=== PATIENT | male | born 1960 | race Caucasian/White ===

== ENCOUNTER 2021-06-22 06:40 | Day surgery (SDC) | payer OTHER ==
[~2021-06-22] VITALS: Ht 172.7 cm; Wt 113.7 kg
[~2021-06-22 06:40] MED LIST: ALLO300 PO; EUTHYROX175 MCG PO; LOSA50 PO; MULVITA PO; OMEP20ER PO; SERT100 PO; ZOCOR20 MG PO
--- NOTE | 2021-06-22 07:29 | NUR ---
Amb[facility] in [facility] warming gown applied. Surgical site prepped with 2% Chlorhexidine cloth wipe. History, Chart, Medications and Allergies reviewed before start of procedure.Lungs clear T/O to Auscultation. Patient confirms NPO status and agrees with scheduled surgery. Pre-Op teaching done. Pt verbalizes understanding. Patient States Post-Procedure ride home has been arranged.
--- NOTE | 2021-06-22 13:58 | NUR ---
RECEIVED REPORT FROM JUAN CARLOS LAWSON RN. PATIENT RESTING COMFORTABLY IN BED, AWAKES TO VOICE AND TOUCH. ABLE TO REPOSITION SELF IN BED, TOLERATING PO ICE CHIPS. REQUESTING AT BEDSIDE, JOKING WITH NURSES AT BEDSIDE. PATIENT HAS ONE INCISION SITE OVER CENTER OF NECK THAT IS COVERED WITH DERMABOND. INCISION SITE IS CLEAN, DRY AND INTACT, NO SWELLING/DRAINAGE/INFLAMMATION NOTED.
--- NOTE | 2021-06-22 14:23 | NUR ---
PT RESTING IN BED, REPORTS FEELING DIZZY THAT IS RELIEVED BY LAYING DOWN FLAT. PT'S DRESSING IS CLEAN, DRY AND INTACT. NO DRAINAGE, INFLAMMATION, SWELLING NOTED.
--- NOTE | 2021-06-22 15:13 | NUR ---
PT RESTING IN BED, AXOX4. SITTING UP AT 30 DEGREE INCLINE AND VISITING WITH AT BEDSIDE. INCISION SITE ON ANTERIOR NECK IS STILL CLEAN, DRY AND INTACT. NO SWELLING, REDNESS, INFLMATTION, DRAINAGE NOTED. PATIENT STATES HIS THROAT/NECK IS ACHY. ICE THERAPY PROVIDED FOR COMFORT AND SWELLING.
--- NOTE | 2021-06-22 15:24 | NUR ---
PT SITTING UP IN BED, LAUGHING WITH AT BESIDE, EATING POPSICLE. INCISION SITE IS CLEAN, DRY AND INTACT. NO INFLAMMATION, DRAINAGE, REDNESS, OR SWELLING NOTED.
--- NOTE | 2021-06-22 15:35 | NUR ---
PT'S INCISION SITE IS CLEAN, DRY AND INTACT. NO SWELLING, INFLAMMATION, DRAINAGE NOTED.
--- NOTE | 2021-06-22 16:13 | NUR ---
1555 TOOK OVER CARE OF PATIENT VSS NO CHANGEGES. AT 1610 PATIENT ASKED FOR CLOTHES AND WANTED TO SLOWLY GET DRESSED AT BEDSIDE
--- NOTE | 2021-06-22 16:40 | NUR ---
Discharge instructions reviewed with patient. Patient verbalizes understanding. Copy given to patient to take home. Patient States Post-Procedure ride home has been arranged. Discharged via wheelchair to private car for ride home.
== END 2021-06-22 23:21 | disposition home or self-care (01) ==
LOC: ORSCMMR 06:40 → ORD 07:30 → ORSCMMR 08:00 → ORD 08:00 → ORSCMMR 23:21
PROVIDERS: Surgery
PROC: 0GTK0ZZ Resection of Thyroid Gland, Open Approach (ICD-10-PCS; principal; 2021-06-22 08:00)
PROC: 0GBJ0ZZ Excision of Thyroid Gland Isthmus, Open Approach (ICD-10-PCS; principal; 2021-06-22 08:00)
DX: E04.2 Nontoxic multinodular goiter (principal); I10 Essential (primary) hypertension; E78.5 Hyperlipidemia, unspecified; G47.33 Obstructive sleep apnea (adult) (pediatric); E11.9 Type 2 diabetes mellitus without complications; K21.9 Gastro-esophageal reflux disease without esophagitis; E66.9 Obesity, unspecified; Z68.38 Body mass index [BMI] 38.0-38.9, adult; Z79.899 Other long term (current) drug therapy
CPT/HCPCS: 82947; 86850; 86900; 86901; 88307; A9270; J0330; J0690; J1100; J2250; J2370; J2405; J2704; J3010; J7120